=== PATIENT | female | born 1995 | race Hispanic/Latino ===

== ENCOUNTER 2018-10-20 22:45 | Emergency (ER) | payer OTHER, SELFPAY ==
[2018-10-20 23:59] LABS: Urine Blood NEGATIVE (NEG); Urine Glucose NEGATIVE (NEG); Urine Protein NEGATIVE (NEG); Urine Specific Gravity 1.025 (1.005-1.030); Urine pH 6.5 (5.0-7.0)
[2018-10-21 00:07] LABS: Absolute Lymphocytes (CBC) 2.9 K/uL (0.7-4.9); Absolute Monocytes 0.7 K/uL (0.1-1.3); Absolute Neutrophil 4.5 K/uL (1.8-8.0); Basophils % 0.3 % (0-1.3); Eosinophils % 1.6 % (0-4.4); Hematocrit 34.5 % (36.0-45.0); MPV 8.9 fL (7.6-11.3); RBC Red Blood Cell Count 4.41 M/uL (3.86-4.86)
[2018-10-21 00:37] LABS: ALT/SGPT 27 U/L (12-78); AST/SGOT 16 U/L (15-37); Albumin 3.6 g/dL (3.4-5.0); Alkaline Phosphatase 87 U/L (45-117); BUN Blood Urea Nitrogen 13 mg/dL (7-18); Bicarbonate 26 mmol/L (21-32); Bilirubin Direct < 0.1 mg/dL (0-0.2); Bilirubin Total 0.3 mg/dL (0.2-1.0); Glucose Level 96 mg/dL (74-106); Magnesium 2.1 mg/dL (1.8-2.4); Potassium 3.6 mmol/L (3.5-5.1); Protein, Total 7.8 g/dL (6.4-8.2); Sodium Level 140 mmol/L (136-145)
--- NOTE | 2018-10-21 01:37 | ER ---
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 Transition of care: patient was not received from another setting of care. Onset of symptoms was October 20, 2018 at 22:30. Risk Assessment: Do you want to hurt yourself or someone else? Patient reports no desire to harm self or others. Initial Sepsis Screen: Does the patient meet any 2 criteria? No. Patient's initial sepsis screen is negative. Does the patient have a suspected source of infection? No. Patient's initial sepsis screen is negative. Care prior to arrival: None. 22:56 Method Of Arrival: Ambulatory tl3 22:56 Acuity: KIANA 4 tl3 Triage Assessment: 22:57 General: Appears comfortable, Behavior is calm, cooperative, appropriate for age. Pain: tl3 Complains of pain in chest. 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 - Social history:: Smoking status: Patient/guardian denies using tobacco, never smoked. - Ebola Screening: : No symptoms or risks identified at this time. Screenin:36 Abuse screen: Denies threats or abuse. Nutritional screening: No deficits noted. ea Tuberculosis screening: No symptoms or risk factors identified. Fall Risk None identified. Assessment: 10/21 00:12 General: Appears in no apparent distress. Behavior is calm, cooperative, appropriate ea for age. Pain: Denies pain. Neuro: Level of Consciousness is awake, alert, obeys commands, Oriented to person, place, time, situation. Cardiovascular: Patient's skin is warm and dry. Respiratory: Airway is patent Respiratory effort is even, unlabored, Respiratory pattern is regular, symmetrical. GI: No signs and/or symptoms were reported involving the gastrointestinal system. : No signs and/or symptoms were reported regarding the genitourinary system. EENT: No signs and/or symptoms were reported regarding the EENT system. Derm: Skin is pink, warm \\T\\ dry. 01:49 Reassessment: Patient appears in no apparent distress at this time. Patient and/or tl2 family updated on plan of care and expected duration. Pain level reassessed. Patient is alert, oriented x 3, equal unlabored respirations, skin warm/dry/pink. pt verbalized understanding of discharge instructions, need for follow up. Vital Signs: 10/20 22:57 BP 147 / 89; Pulse 89; Resp 18; Temp 97.5; Pulse Ox 99% on R/A; Weight 101.6 kg; Height tl3 5 ft. 6 in. (167.64 cm); 22:57 Pain 6/10; tl3 23:09 BP 132 / 85; Pulse 75; Resp 18; Pulse Ox 98% ; ea 10/21 00:46 BP 118 / 74; Pulse 75; Resp 18; Pulse Ox 99% ; ea 01:49 BP 120 / 60; Pulse 69; Resp 18; Pulse Ox 100% on R/A; tl2 10/20 22:57 Body Mass Index 36.15 (101.60 kg, 167.64 cm) tl3 ED Course: 10/20 22:52 Patient arrived in ED. ag3 22:57 Triage completed. tl3 22:57 Arm band placed on right wrist. tl3 23:12 Aneesh Linda PA is PHCP. jr8 23:12 Zachary Jara MD is Attending Physician. jr8 23:58 Inserted saline lock: 20 gauge in right antecubital area, using aseptic technique. mw2 Blood collected. 10/21 00:03 X-ray completed. Portable x-ray completed in exam room. Patient tolerated procedure sg4 well. 00:05 XRAY Chest (1 view) Sent. mw2 00:09 XRAY Chest (1 view) In Process Unspecified. EDMS 00:11 Abbi Matute, BECKIE is Primary Nurse. ea 00:12 Patient has correct armband on for positive identification. Placed in gown. Bed in low ea position. Call light in reach. Side rails up X 1. 01:49 No provider procedures requiring assistance completed. IV discontinued, intact, tl2 bleeding controlled, No redness/swelling at site. Pressure dressing applied. Administered Medications: No medications were administered Outcome: 01:36 Discharge ordered by MD. rausch 01:49 Discharged to home ambulatory. tl2 01:49 Condition: stable 01:49 Discharge instructions given to patient, family, Instructed on discharge instructions, follow up and referral plans. 01:51 Patient left the ED. tl2 Signatures: Dispatcher [employer] EDMS Aneesh Linda PA PA jr8 Negra Guerra RN RN tl2 Abbi Matute RN RN ea Lowrey, Tammy, RN RN tl3 Judi Johnson 2 Thi Merida Susana 4
--- NOTE | 2018-10-21 01:37 | EDPHYS ---
Physician Documentation [facility] Name: Nano Oliva Age: 22 yrs Sex: Female : 1995 Arrival Date: 10/20/2018 Time: 22:52 Bed 5 Private MD: ED Physician Zachary Jara HPI: 10/21 00:08 This 22 yrs old Female presents to ER via Ambulatory with complaints of jr8 Fainting. 00:08 The patient has experienced near-syncope. Onset: The symptoms/episode began/occurred jr8 acutely, today. Duration: This was a single episode. Context: occurred at home. Associated injury: The patient did not suffer any apparent associated injury. Associated signs and symptoms: Pertinent positives: lightheadedness, palpitations, shortness of breath, weakness. Current symptoms: Currently, the patient is not experiencing any symptoms, the patient feels back to baseline, no decreased level of consciousness, no confusion, no dysphasia, no headache, no paralysis, no visual changes. The patient has not experienced similar symptoms in the past. The patient has not recently seen a physician. 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 - Social history:: Smoking status: Patient/guardian denies using tobacco, never smoked. - Ebola Screening: : No symptoms or risks identified at this time. ROS: 10/21 00:08 Eyes: Negative for injury, pain, redness, and discharge, ENT: Negative for injury, jr8 pain, and discharge, Neck: Negative for injury, pain, and swelling, Cardiovascular: Negative for chest pain and edema. Positive for palpitations Abdomen/GI: Negative for abdominal pain, nausea, vomiting, diarrhea, and constipation, Back: Negative for injury and pain, MS/Extremity: Negative for injury and deformity, Skin: Negative for injury, rash, and discoloration. Respiratory: Positive for shortness of breath. Neuro: Positive for near syncope. Exam: 00:08 Head/Face: Normocephalic, atraumatic. Eyes: Pupils equal round and reactive to light, jr8 extra-ocular motions intact. Lids and lashes normal. Conjunctiva and sclera are non-icteric and not injected. Cornea within normal limits. Periorbital areas with no swelling, redness, or edema. ENT: Nares patent. No nasal discharge, no septal abnormalities noted. Tympanic membranes are normal and external auditory canals are clear. Oropharynx with no redness, swelling, or masses, exudates, or evidence of obstruction, uvula midline. Mucous membranes moist. Neck: Trachea midline, no thyromegaly or masses palpated, and no cervical lymphadenopathy. Supple, full range of motion without nuchal rigidity, or vertebral point tenderness. No Meningismus. Cardiovascular: Regular rate and rhythm with a normal S1 and S2. No gallops, murmurs, or rubs. Normal PMI, no JVD. No pulse deficits. Respiratory: Lungs have equal breath sounds bilaterally, clear to auscultation and percussion. No rales, rhonchi or wheezes noted. No increased work of breathing, no retractions or nasal flaring. Abdomen/GI: Soft, non-tender, with normal bowel sounds. No distension or tympany. No guarding or rebound. No evidence of tenderness throughout. Back: No spinal tenderness. No costovertebral tenderness. Full range of motion. Skin: Warm, dry with normal turgor. Normal color with no rashes, no lesions, and no evidence of cellulitis. MS/ Extremity: Pulses equal, no cyanosis. Neurovascular intact. Full, normal range of motion. Neuro: Awake and alert, GCS 15, oriented to person, place, time, and situation. Cranial nerves II-XII grossly intact. Motor strength 5/5 in all extremities. Sensory grossly intact. Cerebellar exam normal. Normal gait. Vital Signs: 10/20 22:57 BP 147 / 89; Pulse 89; Resp 18; Temp 97.5; Pulse Ox 99% on R/A; Weight 101.6 kg; Height tl3 5 ft. 6 in. (167.64 cm); 22:57 Pain 6/10; tl3 23:09 BP 132 / 85; Pulse 75; Resp 18; Pulse Ox 98% ; ea 10/21 00:46 BP 118 / 74; Pulse 75; Resp 18; Pulse Ox 99% ; ea 01:49 BP 120 / 60; Pulse 69; Resp 18; Pulse Ox 100% on R/A; tl2 10/20 22:57 Body Mass Index 36.15 (101.60 kg, 167.64 cm) tl3 MDM: 10/20 23:12 Patient medically screened. [facility] 10/21 01:35 Data reviewed: vital signs, nurses notes, lab test result(s), EKG, radiologic studies, [facility] plain films, and as a result, I will discharge patient. Data interpreted: Pulse oximetry: on room air is 99 %. Interpretation: normal. Counseling: I had a detailed discussion with the patient and/or guardian regarding: the historical points, exam findings, and any diagnostic results supporting the discharge/admit diagnosis, lab results, radiology results, the need for outpatient follow up, a family practitioner, to return to the emergency department if symptoms worsen or persist or if there are any questions or concerns that arise at home. 10/20 23:30 Order name: CBC with Diff; Complete Time: 00:51 [facility] 10/20 23:30 Order name: Basic Metabolic Panel; Complete Time: 00:51 [facility] 10/20 23:30 Order name: Magnesium; Complete Time: 00:51 [facility] 10/20 23:30 Order name: LFT's; Complete Time: 00:51 [facility] 10/20 23:50 Order name: Urine Dipstick--Ancillary (enter results); Complete Time: 00:05 gm 10/20 23:50 Order name: Urine --Ancillary (enter results); Complete Time: 00:05 gm 10/20 23:30 Order name: EKG - Nurse/Tech; Complete Time: 23:46 [facility] 10/20 23:30 Order name: XRAY Chest (1 view) [facility] 10/20 23:30 Order name: Urine Test (obtain specimen); Complete Time: 23:46 [facility] 10/20 23:30 Order name: Urine Dipstick-Ancillary (obtain specimen); Complete Time: 23:46 [facility] 10/20 23:30 Order name: IV; Complete Time: 00:05 [facility] Administered Medications: No medications were administered Disposition: 10/21/18 01:36 Discharged to Home. Impression: Palpitations. - Condition is Stable. - Discharge Instructions: Palpitations. - Medication Reconciliation Form, Thank You Letter, Antibiotic Education, Prescription Opioid Use form. - Follow up: Private Physician; When: 2 - 3 days; Reason: Recheck today's complaints, Continuance of care, Re-evaluation by your physician. - Problem is new. - Symptoms have improved. Addendum: 10/30/2018 11:20 Co-signature as Attending Physician, Zachary Jara MD I agree with the assessment and c coffey plan of care. Signatures: Dispatcher [employer] EDID Zachary Jara MD MD cha Roszak, Josh, GILBERT PA jr8 Negra Guerra RN RN tl2 Rose Marie Curiel RN RN tl3 Corrections: (The following items were deleted from the chart) 10/21 00:10 00:08 Associated signs and symptoms: Pertinent positives: lightheadedness, shortness of jr8 breath, weakness, jr8 00:10 00:08 Eyes: Negative for injury, pain, redness, and discharge, ENT: Negative for jr8 injury, pain, and discharge, Neck: Negative for injury, pain, and swelling, Cardiovascular: Negative for chest pain, palpitations, and edema, Abdomen/GI: Negative for abdominal pain, nausea, vomiting, diarrhea, and constipation, Back: Negative for injury and pain, MS/Extremity: Negative for injury and deformity, Skin: Negative for injury, rash, and discoloration, jr8 01:51 01:36 10/21/2018 01:36 Discharged to Home. Impression: Palpitations. Condition is tl2 Stable. Forms are Medication Reconciliation Form, Thank You Letter, Antibiotic Education, Prescription Opioid Use. Follow up: Private Physician; When: 2 - 3 days; Reason: Recheck today's complaints, Continuance of care, Re-evaluation by your physician. Problem is new. Symptoms have improved. jr8
[2018-10-21 02:13] VITALS: TEMP 97.5
[2018-10-21 02:17] VITALS: BP 120/60; O2SAT 100
--- NOTE | 2018-10-21 12:45 | RAD REPORT ---
EXAM DESCRIPTION: RAD - Chest Single View - 10/21/2018 12:04 am CLINICAL HISTORY: CHEST PAIN Chest pain. COMPARISON: No comparisons FINDINGS: Portable technique limits examination quality. The lungs are grossly clear. The heart is normal in size. No displaced fractures. IMPRESSION: No acute intrathoracic process suspected.
--- NOTE | 2018-10-21 17:28 | EKG ---
Test Date: 2018-10-20 Test Time: 23:44:29 Barrel Plater: SUDHIR MEASUREMENT RESULTS: Intervals: Rate: 78 DE: 158 QRSD: 82 QT: 362 QTc: 412 Albers: P: 47 DE: 158 QRS: 125 T: 3 INTERPRETIVE STATEMENTS: Normal sinus rhythm Indeterminate axis Inferior infarct, age undetermined Cannot rule out Anterior infarct, age undetermined Abnormal ECG No previous ECG available for comparison Electronically Signed On 10-21-18 17:18:03 TRACK REPAIR PERSON by Kevin Nash
== END 2018-10-21 01:51 | disposition home or self-care (01) ==
LOC: ER 22:45
DX: R00.2 Palpitations (principal); R94.31 Abnormal electrocardiogram [ECG] [EKG]
CPT/HCPCS: 36415; 71045; 80048; 80076; 81003; 81025; 83735; 85025; 93005; 99284